=== PATIENT | male | born 1960 | race Caucasian/White ===

== ENCOUNTER 2018-05-29 10:40 | Outpatient (CLI) | payer MEDICARE | END 2018-05-29 10:41 | disposition home or self-care (01) | LOC: BICCT 10:40 | PROVIDERS: ATTEND Physician Assistant Surgical | DX: M47.26 Other spondylosis with radiculopathy, lumbar region (principal); M54.2 Cervicalgia; M54.6 Pain in thoracic spine; M25.78 Osteophyte, vertebrae; M46.92 Unspecified inflammatory spondylopathy, cervical region; Z98.890 Other specified postprocedural states; Z98.1 Arthrodesis status | CPT/HCPCS: 72040; 72100; 72125 ==

== ENCOUNTER 2018-07-03 12:58 | Outpatient (CLI) | payer MEDICARE ==
--- NOTE | 2018-07-03 16:18 | MRI ---
MRI THORACIC SPINE NONCONTRAST: DATE: 07/03/18. HISTORY: A 58-year-old male with M54.6, thoracic back pain. COMPARISON: None. FINDINGS: Vertebral body heights are maintained. Bone marrow signal is normal. There is no high-grade central spinal canal, high-neural foraminal narrowing, cord impingement, or cathie nerve root impingement, at any level. There are tiny disk protrusions or disk-osteophyte complexes encroaching upon the anteri or aspect of the spinal canal at most levels throughout the mid and lower thoracic spine. The one at T5-6 at midline approaches the ventral surface of the spinal cord, but does not indent it. IMPRESSION: 1. Multilevel mild degenerative disk changes. 2. No high-grade central spinal canal stenosis or high-grade neural foraminal stenosis at any level. POS: MIKE
--- NOTE | 2018-07-03 16:50 | MRI ---
MRI CERVICAL SPINE WITH AND WITHOUT CONTRAST: DATE: 07/03/18. HISTORY: A 58-year-old female with cervicalgia. COMPARISON: None. FINDINGS: Vertebral body heights are maintained. Alignment is normal. There are anterior metallic plate and s crews at C6 and C7. There is successful ankylosis between the C6 and C7 vertebral bodies, across an obliterated disk space. The disk spaces are maintained throughout the rest of the levels. There are moderate degenerative facet changes on the right at all levels, except for C6-7, and on the left at all levels, except C5-6 and C6-7. The cervical spinal cord is normal in size and signal. There is n o abnormal enhancement or mass involving the intramedullary, extramedullary-intradural, extradural, i ntraosseous (except the C6 and C7 levels which contain metal), or perivertebral spaces. The findings regarding spinal canal and neural foraminal caliber are as follows: C1-2: No high-grade central stenosis. C2-3: No high-grade central stenosis. Tiny central and right paracentral disk protrusion or disk-os teophyte complex. No right neural foraminal stenosis. Mild left neural foraminal stenosis. C3-4: Tiny central disk-osteophyte complex. No high-grade central stenosis. Bilateral uncinate pro cess osteophytes encroach upon the bilateral neural foramina, causing moderate bilateral neural hayes inal stenosis. C4-5: Tiny central disk protrusion. No high-grade central stenosis. Right uncinate process osteoph ytes cause moderate right neural foraminal stenosis. No left neural foraminal stenosis. C5-6: No significant central stenosis. Small bilateral uncinate process osteophytes. Mild to moder ate bilateral neural foraminal stenosis. C6-7: No central stenosis. Mild to moderate right neural foraminal stenosis. No left neural forami nal stenosis. C7-T1: No high-grade central stenosis. Mild to moderate right neural foraminal stenosis. Moderate neural foraminal stenosis. IMPRESSION: 1. Status post ACDF (anterior cervical diskectomy and fusion) at C6-7. 2. No high-grade central spinal canal stenosis at any level. 3. Modest neural foraminal stenosis at several levels. POS: MIKE
--- NOTE | 2018-07-04 09:31 | MRI ---
MRI OF THE LUMBAR SPINE WITH AND WITHOUT IV CONTRAST: INDICATION: Lumbar radiculopathy. CONTRAST: 20 cc of MultiHance. COMPARISON: None. FINDINGS: There is postprocedural change laminectomies at L5. There is epidural lipomatosis involving the lumbar spine most pronounced from L2 through L5. Mild epidural fibrotic enhancement is seen along the posterior aspect of the thecal sac at the dion ctomy sites at L4-5. No definite abnormal enhancement is demonstrated. At L5-S1, there is moderate facet joint degenerative change and a broad-based disk bulge. There is l oss of disk space height. A combination of these degenerative changes induces moderate bilateral siri ral foraminal narrowing. At the L4-5 level, there is a broad-based bulge, asymmetric to the right. There is a small superimpo sed central disk protrusion. There is moderate facet joint degenerative change. Constellation of fi ndings induces mild to moderate bilateral neural foraminal narrowing and moderate right lateral reces s narrowing. At L3-4, there is a broad-based bulge with a superimposed central disk protrusion. The epidural lipo matosis in addition to the broad-based disk bulge with mild to moderate facet joint hypertrophy induc es moderate to severe central canal narrowing. There is mild bilateral neural foraminal narrowing. At L2-3, there is a broad-based bulge with a superimposed central protrusion. There is moderate face t joint degenerative change. There is epidural lipomatosis. Constellation of findings induces moder ate central canal narrowing. There is mild bilateral neural foraminal narrowing. At L1-L2, there is a mild broad-based bulge without appreciable central canal or neural foraminal jeni rowing. At T12-L1, there is a mild broad-based bulge without appreciable central canal or neural foraminal na rrowing. IMPRESSION: 1. Central canal and neural foraminal narrowing seen at L2-3 and L3-4. 2. Broad-based bulge with facet hypertrophy at L4-5 induces mild to moderate bilateral neural forami nal narrowing. There is moderate right lateral recess narrowing due to the broad-based bulge and fac et hypertrophy. 3. Moderate bilateral neural foraminal narrowing at L5-S1 due to facet hypertrophy, broad-based disk -osteophyte complex, and loss of disk space height. POS: MIKE
== END 2018-07-03 12:59 | disposition home or self-care (01) ==
LOC: TBSIIMAG 12:58
PROVIDERS: ATTEND Physician Assistant Surgical
DX: M54.2 Cervicalgia (principal); M54.16 Radiculopathy, lumbar region; M54.6 Pain in thoracic spine; M48.061 Spinal stenosis, lumbar region without neurogenic claudication; M99.83 Other biomechanical lesions of lumbar region; M48.8X6 Other specified spondylopathies, lumbar region; M48.02 Spinal stenosis, cervical region; M99.81 Other biomechanical lesions of cervical region; M51.34 Other intervertebral disc degeneration, thoracic region; Z98.1 Arthrodesis status
CPT/HCPCS: 72146; 72156; 72158

== ENCOUNTER 2018-07-07 19:48 | Emergency (ER) | payer MEDICARE ==
[2018-07-07 20:14] LABS: #Eosinphils 0.2 thou/uL (0.0-0.7); #Lymphocytes 1.5 thou/uL (1.20-3.40); #Monocytes 0.7 thou/uL (0.11-0.59); #Neutrophils 5.9 thou/uL (1.40-6.50); %Basophils 0.5 % (0.0-1.0); %Eosinophils 2.1 % (0.0-10.0); %Lymphocytes 18.3 % (21.0-51.0); %Monocytes 8.2 % (0.0-10.0); %Neutrophils 70.9 % (42.0-75.0); Hemoglobin 14.1 g/dL (14.0-18.0); Mean Corpuscular HGB CONC 35.5 g/dL (32.0-36.0); Mean Corpuscular Hemoglobin 31.9 pg (27.0-31.0); Mean Corpuscular Volume 89.9 fL (78.0-98.0); Mean Platelet Volume 8.2 fL (7.4-10.4); Platelet Count 206 thou/uL (130-400); RBC Distribution Width 12.6 % (11.5-14.5); Red Blood Cell (RBC) Count 4.42 mill/uL (4.70-6.10); White Blood Cell (WBC) Count 8.3 thou/uL (4.8-10.8)
[2018-07-07 20:38] LABS: CKMB 0.8 ng/mL (0-6.6); Troponin I Less than 0.010 ng/mL (< 0.028)
[2018-07-07 20:38] LABS: ALT (SGPT) 21 U/L (8-55); AST (SGOT) 14 U/L (5-34); Albumin 4.4 g/dL (3.5-5.0); Alkaline Phosphatase 65 U/L (40-150); Anion Gap 9 mmol/L (10-20); BUN (Urea Nitrogen) 16 mg/dL (8.4-25.7); Bilirubin, Total 0.6 mg/dL (0.2-1.2); Calc. Creatinine Clearance 0 mL/min (70-130); Calcium 9.4 mg/dL (7.8-10.44); Carbon Dioxide 31 mmol/L (22-29); Chloride 103 mmol/L (98-107); Estimated GFR-MDRD 48; Globulin 2.8 g/dL (2.4-3.5); Glucose 124 mg/dL (70-105); Lipase 59 U/L (8-78); Protein, Total 7.2 g/dL (6.0-8.3); Sodium 140 mmol/L (136-145)
[2018-07-07] MEDS ORDERED: Ondansetron HCl/PF 4 MG/2 ML Vial ONE (20:49)
--- NOTE | 2018-07-07 21:31 | RAD ---
AP CHEST: Indication: Vomiting, nausea. Comparison: 05-23-04 FINDINGS: There is an ACDF involving the lower sacral spine. The left shoulder has been replaced. Lungs are ha ar. Heart size accentuated by exam technique. No pleural effusion or pneumothorax is evident. IMPRESSION: No acute cardiopulmonary abnormality. POS: BH
[2018-07-07] MEDS ORDERED: Potassium Chloride 20 MEQ TAB ONE (22:51)
== END 2018-07-07 23:05 | disposition home or self-care (01) ==
LOC: ERS 19:48
DX: E87.6 Hypokalemia (principal); I10 Essential (primary) hypertension; F31.9 Bipolar disorder, unspecified; F43.10 Post-traumatic stress disorder, unspecified; Z79.899 Other long term (current) drug therapy
CPT/HCPCS: 71045; 80053; 82553; 83690; 84484; 85025; 93005; 96361; 96374; J2405

== ENCOUNTER 2018-07-15 21:09 | Emergency (ER) | payer MEDICARE | END 2018-07-15 23:15 | disposition home or self-care (01) | LOC: ERS 21:09 | DX: B34.9 Viral infection, unspecified (principal); I10 Essential (primary) hypertension; F31.9 Bipolar disorder, unspecified; F43.10 Post-traumatic stress disorder, unspecified | CPT/HCPCS: 94640; J7620 ==

== ENCOUNTER 2018-08-15 08:32 | Outpatient (CLI) | payer MEDICARE ==
[2018-08-15 09:19] LABS: Hemoglobin 14.5 g/dL (14.0-18.0); Mean Corpuscular HGB CONC 34.7 g/dL (32.0-36.0); Mean Corpuscular Hemoglobin 31.8 pg (27.0-31.0); Mean Corpuscular Volume 91.6 fL (78.0-98.0); Mean Platelet Volume 8.4 fL (7.4-10.4); Platelet Count 237 thou/uL (130-400); RBC Distribution Width 12.8 % (11.5-14.5); Red Blood Cell (RBC) Count 4.58 mill/uL (4.70-6.10); White Blood Cell (WBC) Count 6.1 thou/uL (4.8-10.8)
[2018-08-15 09:25] LABS: PTT 27.7 SEC (22.9-36.1)
[2018-08-15 09:49] LABS: Anion Gap 12 mmol/L (10-20); BUN (Urea Nitrogen) 17 mg/dL (8.4-25.7); Calc. Creatinine Clearance 0 mL/min (70-130); Carbon Dioxide 29 mmol/L (22-29); Chloride 101 mmol/L (98-107); Estimated GFR-MDRD 56; Glucose 128 mg/dL (70-105); Potassium 3.2 mmol/L (3.5-5.1); Sodium 139 mmol/L (136-145)
== END 2018-08-15 08:33 | disposition home or self-care (01) ==
LOC: LABBT 08:32
PROVIDERS: ATTEND Surgery
DX: Z01.818 Encounter for other preprocedural examination (principal); M54.16 Radiculopathy, lumbar region; M48.061 Spinal stenosis, lumbar region without neurogenic claudication
CPT/HCPCS: 80048; 85027; 85610; 85730; 93005; 93010

== ENCOUNTER 2018-08-15 09:15 | Inpatient (IN) | payer MEDICARE ==
[2018-08-15 09:07] VITALS: BMI 42.1
[2018-08-22] MEDS ORDERED: CEFAZOLIN/Water 2 GM/20 ML SYRINGE ONE (08:56)
[2018-08-22] MEDS ORDERED: Bacitracin Zinc Ointment 30 gm TUBE ONE (09:25)
[2018-08-22] MEDS ORDERED: Sodium Chloride 0.9% 10 ML ONE (09:25)
[2018-08-22] MEDS ORDERED: Thrombin 5000 UNITS/5 ML VIAL ONE (09:25)
[2018-08-22] MEDS ORDERED: Ondansetron PF 4 MG/2 ML Vial ONE (10:01)
[2018-08-22] MEDS ORDERED: PHENYLEPHRINE-NS 100 MCG/ML 10 ML SYRINGE ONE (10:01)
[2018-08-22] MEDS ORDERED: PROPOFOL 200 MG/20 ML VIAL ONE (10:01)
[2018-08-22] MEDS ORDERED: Lidocaine 1% PF 5 ML VIAL ONE (10:01)
[2018-08-22] MEDS ORDERED: Glycopyrrolate 0.2 MG/ML 5 ML SYRINGE ONE (10:01)
[2018-08-22] MEDS ORDERED: Succinylcholine Chloride 20 MG/ML 10 ml SYRINGE FS ONE (10:01)
[2018-08-22] MEDS ORDERED: ePHEDrine/0.9% NaCl/PF SYRINGE 50 mg/10 ml ONE (10:01)
[2018-08-22] MEDS ORDERED: Dexamethasone 20 MG/5 ML VIAL ONE (10:01)
[2018-08-22] MEDS ORDERED: Fentanyl 250 MCG/5 ML VIAL ONE (10:22)
[2018-08-22] MEDS ORDERED: Promethazine HCl 25 MG/ML VIAL SLOW IVP PRN (12:53)
[2018-08-22] MEDS ORDERED: Morphine Sulfate 2 MG/ML SYRINGE SLOW IVP PRN (12:53)
[2018-08-22] MEDS ORDERED: Ondansetron HCl/PF 4 MG/2 ML Vial IVP PRN (12:53)
[2018-08-22] MEDS ORDERED: Promethazine HCl 25 MG/ML VIAL IM PRN (12:53)
[2018-08-22] MEDS ORDERED: PACU-Morphine 4MG/ML VIAL SLOW IVP PRN (12:53)
[2018-08-22] MEDS ORDERED: HYDROmorphone 2 MG/ML VIAL SLOW IVP PRN (12:53)
--- NOTE | 2018-08-22 13:05 | OP ---
DATE OF PROCEDURE: 08/22/2018 SURGEON: Robles Hernandez M.D. HUMAN RESOURCES RECRUITER: Fernando Orellana PA-C. PREPROCEDURE DIAGNOSES: Multilevel lumbar stenosis with low back and leg pain. POSTPROCEDURE DIAGNOSES: Multilevel lumbar stenosis with low back and leg pain. PROCEDURES: 1. L2-L3, L3-L4 and L5-S1 laminectomies and partial facetectomies and foraminotomies over the L2, L3 , L4 and S1 nerve roots. 2. Bilateral revision L4-L5 hemilaminotomy, foraminotomy for decompression of the L4-L5 nerve roots. PROCEDURE IN DETAIL: After informed consent was obtained from the patient, the patient was brought t o OR 11. Proper patient pause and identification was carried out. He was placed under excellent gen eral endotracheal anesthesia and positioned prone on the OR table. All appropriate points were padde d. We identified the L2, L3, L4 and S1 dorsal spines as a portion of the L4-L5 had been removed. Th is area was sterilely cleansed, prepared and draped. Proper patient pause and identification was car ried out. The wound was then opened with a combination of sharp, monopolar and blunt dissection. L2 , L3, L4, the revision region of L4-L5 and L5-S1 were exposed and localization film confirmed our are a of interest. We then performed L2-L3, L3-L4 laminectomies, partial facetectomies and foraminotomie s and L5-S1 laminectomies, partial facetectomies and foraminotomies. We also performed bilateral rev ision L4-L5 hemilaminotomies and foraminotomies for excellent decompression of the L2, L3, L4 and L5 nerve roots along with the S1 nerve roots bilaterally and the common dural tube. There was no spinal fluid leak. Hemostasis was maximized throughout. There was as expected scar tissue in the L4-L5 re gion. Copious irrigation occurred throughout and we maximized hemostasis. I do not think it is nece ssary to do any diskectomy at L3-L4 as we had excellent decompression of the traversing right L4 nerv e roots simply from our decompression. The wound was copiously irrigated and closed in anatomic laye rs following sprinkling of vancomycin powder. The patient then emerged from anesthesia.
[2018-08-22] MEDS ORDERED: Acetaminophen 325 MG TAB PO PRN (13:52)
[2018-08-22] MEDS ORDERED: Fleet Enema 133 ML BOT PR PRN (13:52)
[2018-08-22] MEDS ORDERED: Milk Of Magnesia 30 ML UDCUP PO PRN (13:52)
[2018-08-22] MEDS ORDERED: Mag-Al 1200 mg/1200 mg/30 ML UDCUP PO PRN (13:52)
[2018-08-22] MEDS ORDERED: Bisacodyl 10 MG SUPP PR PRN (13:52)
[2018-08-22] MEDS ORDERED: Fentanyl 100 MCG/2 ML VIAL ONE ×2 (14:00→15:15)
[2018-08-22] MEDS ORDERED: HYDROmorphone 2 MG/ML VIAL ONE (14:00)
[2018-08-22] MEDS: Ondansetron PF 4 MG/2 ML Vial IVP PRN (15:52)
[2018-08-22] MEDS: Sodium Chloride 0.9% 1,000 ML IV SCH (16:00)
[2018-08-22] MEDS: HYDROcodone/Acetaminophen 7.5/325 mg Tablet PO PRN ×2 (16:28→21:09)
[2018-08-22] MEDS: tiZANidine HCl 4 MG TAB PO PRN ×2 (16:28→22:42)
[2018-08-22] MEDS: CEFAZOLIN/Water 2 GM/20 ML SYRINGE SLOW IVP SCH (18:53)
[2018-08-22] MEDS: Atorvastatin Calcium 10 MG TAB PO SCH (20:24)
[2018-08-22] MEDS: Pregabalin 75 MG CAP PO SCH (20:24)
[2018-08-22] MEDS ORDERED: PREGABALIN PO SCH (21:00)
[2018-08-23] MEDS: CEFAZOLIN/Water 2 GM/20 ML SYRINGE SLOW IVP SCH (03:17)
[2018-08-23] MEDS: Sodium Chloride 0.9% 1,000 ML IV SCH ×2 (04:08→16:11)
[2018-08-23] MEDS: HYDROcodone/Acetaminophen 7.5/325 mg Tablet PO PRN ×5 (04:26→21:13)
[2018-08-23] MEDS: tiZANidine HCl 4 MG TAB PO PRN ×3 (04:27→16:38)
[2018-08-23] MEDS: Acetaminophen/Codeine 30-300mg Tablet PO PRN ×4 (07:58→20:09)
[2018-08-23] MEDS: Pregabalin 75 MG CAP PO SCH ×2 (08:26→20:04)
[2018-08-23] MEDS: FLUoxetine HCl 20 MG CAP PO SCH (08:28)
[2018-08-23] MEDS: Losartan/Hydrochlorothiazide 100 mg/25 mg Tablet PO SCH (08:28)
[2018-08-23] MEDS ORDERED: Brexpiprazole [Rexulti] 3 MG PO SCH (09:00)
--- NOTE | 2018-08-23 09:31 | PRG ---
DATE OF SERVICE: 08/23/2018 SUBJECTIVE: Mr. Arango is postoperative day #1 from lumbar laminectomy. He is doing well with imp rovement in his leg pain. He does have a low back pain related to muscle spasms and perioperative pa in not surprisingly. We will work on this today and if brought under better control, we will plan on dismissal later today. Overall, I am pleased with how he is doing. Neurologically, he is intact.
[2018-08-23] MEDS: Ondansetron PF 4 MG/2 ML Vial IVP PRN (12:48)
[2018-08-23] MEDS: Atorvastatin Calcium 10 MG TAB PO SCH (20:04)
[2018-08-24] MEDS: HYDROcodone/Acetaminophen 7.5/325 mg Tablet PO PRN ×5 (02:11→22:54)
[2018-08-24] MEDS: Sodium Chloride 0.9% 1,000 ML IV SCH ×2 (05:04→18:15)
[2018-08-24] MEDS: tiZANidine HCl 4 MG TAB PO PRN ×2 (08:43→16:08)
[2018-08-24] MEDS: Pregabalin 75 MG CAP PO SCH ×2 (08:44→21:18)
[2018-08-24] MEDS: Losartan/Hydrochlorothiazide 100 mg/25 mg Tablet PO SCH (08:45)
[2018-08-24] MEDS: FLUoxetine HCl 20 MG CAP PO SCH (08:45)
--- NOTE | 2018-08-24 09:45 | PRG ---
DATE OF SERVICE: 08/24/2018 SUBJECTIVE: Mr. Armando Arango on rounds this morning. He is 2 days out from a laminectomy and dis kectomy by Dr. Hernandez. The radiating leg pain down to his legs is gone. He is very happy with that result. He has had some muscle spasm and difficulty with pain control at the surgical site, but his nerve pain is markedly improved. Mr. Arango walked yesterday. He said to be ready to go home today as long as his pain gets under c ontrol. We talked at length about frequent walking and muscle spasm. He understands the recommendat ion. We will make sure his pain is under control by lunch time before dismissal. If we cannot get i t under control, he may have to stay, but the plan is for discharge.
[2018-08-24] MEDS ORDERED: HYDROcodone/Acetaminophen 7.5/325 mg Tablet PO PRN (10:27)
[2018-08-24] MEDS: Atorvastatin Calcium 10 MG TAB PO SCH (21:19)
[2018-08-25] MEDS: HYDROcodone/Acetaminophen 7.5/325 mg Tablet PO PRN ×2 (06:39→10:48)
[2018-08-25] MEDS: tiZANidine HCl 4 MG TAB PO PRN (06:42)
[2018-08-25] MEDS: Losartan/Hydrochlorothiazide 100 mg/25 mg Tablet PO SCH (08:42)
[2018-08-25] MEDS: FLUoxetine HCl 20 MG CAP PO SCH (08:42)
[2018-08-25] MEDS: Pregabalin 75 MG CAP PO SCH (08:42)
[2018-08-25] MEDS: Sodium Chloride 0.9% 1,000 ML IV SCH (08:44)
--- NOTE | 2018-08-25 08:51 | PRG ---
DATE OF SERVICE: 08/25/2018 SUBJECTIVE: I saw Mr. Arango in his hospital room this morning. He is unable to leave the hospita l yesterday. He reports some paraspinal pain at the site of the operation. He still tells us that t he pain he had before surgery is gone. His vital signs overnight are relatively stable, although his oxygen saturation hangs in the mid to low 90s. Lower extremity exam does not show any new deficits. Mr. Arango is ambulating with aggressive treatment with Voldyne and incentive spirometer. We will try these medications that are not depressive to his respiratory drive and if his saturations remaine d stable and he is safe for activities of daily living, he can be discharged.
[2018-08-25 09:02] VITALS: BP 122/80; TEMP 97.8
== END 2018-08-25 12:57 | disposition home or self-care (01) | DRG 520 ==
LOC: SURG A 08-22 08:03
PROVIDERS: ADMIT Surgery; ATTEND Surgery
PROC: 01NB0ZZ Release Lumbar Nerve, Open Approach (ICD-10-PCS; principal; 2018-08-22)
PROC: 0SB20ZZ Excision of Lumbar Vertebral Disc, Open Approach (ICD-10-PCS; 2018-08-22)
PROC: 01NB0ZZ Release Lumbar Nerve, Open Approach (ICD-10-PCS; 2018-08-22)
DX: M54.16 Radiculopathy, lumbar region (principal); M48.061 Spinal stenosis, lumbar region without neurogenic claudication; M51.26 Other intervertebral disc displacement, lumbar region
CPT/HCPCS: 76001; G8978-GP-CJ; G8979-GP-CJ; G8980-GP-CJ; J0131; J1100; J1170; J2001; J2270; J2405; J2704; J3010; J3370; J3490

== ENCOUNTER 2018-09-10 20:58 | Emergency (ER) | payer MEDICARE ==
[2018-09-10 22:16] LABS: #Eosinphils 0.2 thou/uL (0.0-0.7); #Lymphocytes 1.7 thou/uL (1.20-3.40); #Monocytes 0.6 thou/uL (0.11-0.59); #Neutrophils 4.2 thou/uL (1.40-6.50); %Basophils 0.4 % (0.0-1.0); %Eosinophils 3.5 % (0.0-10.0); %Lymphocytes 25.8 % (21.0-51.0); %Monocytes 8.4 % (0.0-10.0); Hemoglobin 13.4 g/dL (14.0-18.0); Mean Corpuscular HGB CONC 34.7 g/dL (32.0-36.0); Mean Corpuscular Hemoglobin 31.7 pg (27.0-31.0); Mean Corpuscular Volume 91.4 fL (78.0-98.0); Mean Platelet Volume 9.1 fL (7.4-10.4); Platelet Count 262 thou/uL (130-400); RBC Distribution Width 12.3 % (11.5-14.5); Red Blood Cell (RBC) Count 4.24 mill/uL (4.70-6.10); White Blood Cell (WBC) Count 6.7 thou/uL (4.8-10.8)
[2018-09-10 22:38] LABS: ALT (SGPT) 17 U/L (8-55); AST (SGOT) 15 U/L (5-34); Albumin 4.2 g/dL (3.5-5.0); Alkaline Phosphatase 64 U/L (40-150); Anion Gap 12 mmol/L (10-20); BUN (Urea Nitrogen) 20 mg/dL (8.4-25.7); Bilirubin, Total 0.6 mg/dL (0.2-1.2); Calc. Creatinine Clearance 0 mL/min (70-130); Calcium 9.4 mg/dL (7.8-10.44); Carbon Dioxide 28 mmol/L (22-29); Chloride 103 mmol/L (98-107); Estimated GFR-MDRD 51; Globulin 2.7 g/dL (2.4-3.5); Glucose 109 mg/dL (70-105); Potassium 3.4 mmol/L (3.5-5.1); Protein, Total 6.9 g/dL (6.0-8.3); Sodium 140 mmol/L (136-145)
[2018-09-10 22:42] LABS: Troponin I Less than 0.010 ng/mL (< 0.028)
[2018-09-10] MEDS ORDERED: Lorazepam 1 MG TAB ONE (22:51)
--- NOTE | 2018-09-10 23:16 | RAD ---
CHEST ONE VIEW: 09/10/18 INDICATION: History of anxiety, bipolar disease, dyspnea. FINDINGS: ACDF and left shoulder replacement is stable. Heart size is accentuated by the exam technique. Lungs are clear. No pneumothorax is evident. No acute osseous abnormality is evident. IMPRESSION: No acute cardiopulmonary abnormality. POS: TAWANNAH
== END 2018-09-10 23:33 | disposition home or self-care (01) ==
LOC: ERS 20:58
DX: F43.0 Acute stress reaction (principal); I10 Essential (primary) hypertension; F31.9 Bipolar disorder, unspecified; F41.9 Anxiety disorder, unspecified; F43.10 Post-traumatic stress disorder, unspecified
CPT/HCPCS: 36415; 71045; 80053; 84484; 85025; 85379; 93005

== ENCOUNTER 2019-02-22 17:40 | Emergency (ER) | payer MEDICARE, SELFPAY ==
[~2019-02-22 17:40] MED LIST: ISOVUE-370 76%-LOCM 1 ML ONE
[2019-02-22] MEDS ORDERED: Ondansetron PF 4 MG/2 ML Vial ONE (18:05)
[2019-02-22] MEDS ORDERED: Morphine 4 MG/ML VIAL ONE (18:05)
[2019-02-22 18:18] LABS: #Eosinphils 0.1 thou/uL (0.0-0.7); #Lymphocytes 1.7 thou/uL (1.20-3.40); #Monocytes 0.7 thou/uL (0.11-0.59); #Neutrophils 7.7 thou/uL (1.40-6.50); %Basophils 0.2 % (0.0-1.0); %Eosinophils 0.7 % (0.0-10.0); %Lymphocytes 16.5 % (21.0-51.0); %Monocytes 6.9 % (0.0-10.0); %Neutrophils 75.7 % (42.0-75.0); Hemoglobin 14.4 g/dL (14.0-18.0); Mean Corpuscular HGB CONC 34.4 g/dL (32.0-36.0); Mean Corpuscular Hemoglobin 31.8 pg (27.0-31.0); Mean Corpuscular Volume 92.4 fL (78.0-98.0); Mean Platelet Volume 8.6 fL (7.4-10.4); Platelet Count 274 thou/uL (130-400); RBC Distribution Width 13.2 % (11.5-14.5); Red Blood Cell (RBC) Count 4.53 mill/uL (4.70-6.10); White Blood Cell (WBC) Count 10.1 thou/uL (4.8-10.8)
[2019-02-22 18:40] LABS: ALT (SGPT) 9 U/L (8-55); AST (SGOT) 15 U/L (5-34); Albumin 4.1 g/dL (3.5-5.0); Alkaline Phosphatase 63 U/L (40-150); Anion Gap 13 mmol/L (10-20); BUN (Urea Nitrogen) 8 mg/dL (8.4-25.7); Bilirubin, Total 0.5 mg/dL (0.2-1.2); Calc. Creatinine Clearance 0 mL/min (70-130); Calcium 9.3 mg/dL (7.8-10.44); Carbon Dioxide 25 mmol/L (22-29); Chloride 104 mmol/L (98-107); Estimated GFR-MDRD 72; Globulin 3.1 g/dL (2.4-3.5); Glucose 129 mg/dL (70-105); Lipase 40 U/L (8-78); Potassium 4.4 mmol/L (3.5-5.1); Protein, Total 7.2 g/dL (6.0-8.3); Sodium 138 mmol/L (136-145)
--- NOTE | 2019-02-22 19:33 | CT ---
CT ABDOMEN AND PELVIS WITH IV CONTRAST 02/22/19 HISTORY: Right upper quadrant abdominal pain with radiation of pain to the back. Vomiting and diarrhea. COMPARISON: None available. FINDINGS: Calcified granuloma is seen at the left lung base. The lung bases are otherwise clear. A 2 cm hypodense exophytic lesion is seen at the posterior aspect inferior pole left kidney which burgess s not demonstrate an attenuation coefficient consistent with a simple cyst. Precontrast images are n ot obtained for further evaluation. Post cholecystectomy changes are noted. The liver, spleen, pancreas, bilateral adrenal glands, right kidney, abdominal aorta, and urinary david dder demonstrate a normal CT appearance. A few scattered colonic diverticula are seen in the descending colon. The appendix is not visualized and there is linear area of increased density at the cecal apex likely related to prior appendectomy. No dilated loops of small bowel are seen. There is a fat containing left inguinal hernia present. Vascular calcifications are seen in the iliac arteries. Degenerative changes are seen in the spine with laminectomy defects seen involving the lower lumbar spine. IMPRESSION: 1. Low density lesion inferior pole left kidney which does not demonstrate an attenuation coeffi cient compatible with a simple cyst. Follow-up CT scan abdomen with and without IV contrast is recomm ended for further evaluation. 2. Post cholecystectomy changes. 3. Small fat containing umbilical hernia as well as fat containing left inguinal hernia. 4. Evidence of prior appendectomy. 5. No acute findings are seen in the abdomen or pelvis. POS: TINY
[2019-02-22] MEDS ORDERED: Mag-Al 1200 mg/1200 mg/30 ML UDCUP ONE (19:58)
[2019-02-22] MEDS ORDERED: Lidocaine Viscous Sol 2% 15 ml UD Cup ONE (19:58)
[2019-02-22 20:03] LABS: Bilirubin Negative (Negative); Blood, Urine Negative (Negative); Clarity CLEAR (Clear); Glucose, Urine (Dipstick) Negative (Negative); Leukocyte Negative (Negative); Nitrite Negative (Negative); Protein, Urine (Dipstick) Negative (Neg-Trace); Specific Gravity, Urine 1.024 (1.002-1.036); pH, Urine 7.5 (5.0-9.0)
== END 2019-02-22 20:45 | disposition home or self-care (01) ==
LOC: ERS 17:40
DX: R10.11 Right upper quadrant pain (principal); E78.5 Hyperlipidemia, unspecified; I10 Essential (primary) hypertension; F41.9 Anxiety disorder, unspecified; F31.9 Bipolar disorder, unspecified; F43.10 Post-traumatic stress disorder, unspecified
CPT/HCPCS: 36415; 74177; 80053; 81003; 83690; 85025; 93005; 96361; 96374; 96375; J2270; J2405; Q9966

== ENCOUNTER 2019-05-31 00:30 | Observation (INO) | payer MEDICARE ==
[2019-05-31 01:15] LABS: #Lymphocytes 1.7 thou/uL (1.20-3.40); #Monocytes 0.5 thou/uL (0.11-0.59); #Neutrophils 3.8 thou/uL (1.40-6.50); %Basophils 0.7 % (0.0-1.0); %Eosinophils 0.2 % (0.0-10.0); %Lymphocytes 28.8 % (21.0-51.0); %Monocytes 7.7 % (0.0-10.0); %Neutrophils 62.6 % (42.0-75.0); Hemoglobin 13.5 g/dL (14.0-18.0); Mean Corpuscular Hemoglobin 32.7 pg (27.0-31.0); Mean Corpuscular Volume 90.9 fL (78.0-98.0); Mean Platelet Volume 8.3 fL (7.4-10.4); Platelet Count 229 thou/uL (130-400); RBC Distribution Width 12.2 % (11.5-14.5); Red Blood Cell (RBC) Count 4.13 mill/uL (4.70-6.10)
[2019-05-31] MEDS ORDERED: Fentanyl 100 MCG/2 ML VIAL ONE (01:15)
[2019-05-31] MEDS ORDERED: Ondansetron PF 4 MG/2 ML Vial ONE (01:15)
[2019-05-31 01:34] LABS: ALT (SGPT) 17 U/L (8-55); AST (SGOT) 16 U/L (5-34); Albumin 4.1 g/dL (3.5-5.0); Alkaline Phosphatase 86 U/L (40-150); Anion Gap 14 mmol/L (10-20); BUN (Urea Nitrogen) 9 mg/dL (8.4-25.7); Bilirubin, Total 0.2 mg/dL (0.2-1.2); Calc. Creatinine Clearance 0 mL/min (70-130); Carbon Dioxide 25 mmol/L (22-29); Chloride 103 mmol/L (98-107); Estimated GFR-MDRD 72; Globulin 3.2 g/dL (2.4-3.5); Glucose 177 mg/dL (70-105); Lipase 117 U/L (8-78); Potassium 3.6 mmol/L (3.5-5.1); Protein, Total 7.3 g/dL (6.0-8.3); Sodium 138 mmol/L (136-145)
[2019-05-31] MEDS ORDERED: Morphine 4 MG/ML VIAL ONE (01:37)
[2019-05-31 02:23] LABS: Bilirubin Negative (Negative); Blood, Urine Negative (Negative); Clarity Clear (Clear); Glucose, Urine (Dipstick) Normal (Negative); Leukocyte Negative Leu/uL (Negative); Nitrite Negative (Negative); Protein, Urine (Dipstick) Negative (Neg-Trace); Urobilinogen Normal mg/dL (Less than 2)
[2019-05-31] MEDS ORDERED: HYDROmorphone 0.5 MG/0.5 ML SYRINGE ONE (02:36)
[2019-05-31] MEDS ORDERED: Pantoprazole 40 MG VIAL ONE (03:18)
[2019-05-31] MEDS ORDERED: Ondansetron ODT 4 MG TAB SL PRN (04:38)
[2019-05-31] MEDS ORDERED: Ondansetron PF 4 MG/2 ML Vial IVP PRN (04:38)
[2019-05-31] MEDS ORDERED: Sodium Chloride 0.9% (PF) 10 ML VIAL FS PRN (04:38)
[2019-05-31 05:32] LABS: Lactic Acid 1.3 mmol/L (0.5-2.2)
[2019-05-31] MEDS: Sodium Chloride 0.9% 1,000 ML IV SCH ×2 (05:54→14:04)
[2019-05-31] MEDS ORDERED: Morphine 4 MG/ML VIAL SLOW IVP SCH (06:00)
[2019-05-31] MEDS ORDERED: Morphine 2 MG/ML SYRINGE SLOW IVP PRN (08:58)
[2019-05-31] MEDS ORDERED: Pantoprazole 40 MG VIAL IVP SCH (09:00)
[2019-05-31] MEDS ORDERED: Famotidine 20 MG TAB PO SCH (09:00)
--- NOTE | 2019-05-31 09:16 | CT ---
PRELIMINARY REPORT/[facility]/EMERGENCY AFTER HOURS PROCEDURE: EXAM: CT Abdomen and Pelvis With Contrast EXAM DATE/TIME: 05/31/2019 1:26 AM CLINICAL HISTORY: 59 years old, male; Abdominal pain; Generalized; Prior surgery; Surgery date: 6+ months; Patient HX: 59 y/o m, with h/o pancreatitis, presents to ED C/O abd pain since 0800 yesterday morning. He describ es he was nauseated on waking yesterday morning, with onset of pain soon after. PT has x 3 prior admissions for pancreatitis. He describes ETOH ingestion in large amounts several years ago. Ab d surgical HX includes cholecystectomy TECHNIQUE: Imaging protocol: Axial computed tomography images of the abdomen and pelvis with intravenous contras t. Coronal and sagittal reformatted images were created and reviewed. COMPARISON: No relevant prior studies available. FINDINGS: Lungs: No consolidations in the lung bases. Liver: No liver masses. Gallbladder and bile ducts: Surgical changes of cholecystectomy. No ductal dilation. Pancreas: No pancreatic mass or ductal dilation. Spleen: No splenic masses. Adrenals: No adrenal nodules. Kidneys and ureters: Lesion measuring approximately 1.5 cm arising from the posterior-lateral aspect of the left kidney inferior pole. Symmetric renal perfusion. No hydronephrosis. Stomach and bowel: No evidence of obstruction or bowel wall thickening. Appendix: Surgical changes of prior appendectomy. Intraperitoneal space: No free air or free fluid. Vasculature: No abdominal aortic aneurysm. Lymph nodes: No lymphadenopathy. Bladder: Normal bladder. Reproductive: Normal appearance of the prostate and seminal vesicles. Bones/joints: No suspicious bone lesions. Soft tissues: Small to moderate fat containing left inguinal hernia. Tiny fat-containing umbilical hernia. IMPRESSION: 1. No acute findings in the abdomen or pelvis. 2. Lesion in the left kidney is indeterminate for being a hyperdense cyst or solid mass. Defer to ons ite Radiologist for follow-up recommendations. Thank you for allowing us to participate in the care of your patient. Dictated and Authenticated by: Ayla Contreras MD 05/31/2019 1:54 AM Central Time ([place] & [place]) FINAL REPORT EMERGENCY AFTER HOURS CT ABDOMEN AND PELVIS: Date: 05/31/19 FINDINGS/IMPRESSION: I agree with the preliminary report provided by [facility]. 1. Exophytic lesion involving the left kidney has been seen on a prior dated 03/02/19. This is rough ly stable in size. Recommendations remain the same as per the February 2019 examination. Additional imag ing utilizing renal mass protocol recommended. 2. Mild bibasilar atelectasis. 3. Fatty liver. 4. Cholecystectomy changes. 5. Mild amount of retained stool within the colon. POS: BH
[2019-05-31] MEDS: Morphine 4 MG/ML VIAL SLOW IVP PRN ×4 (09:30→22:11)
[2019-05-31] MEDS: Enoxaparin Sodium 40 MG/0.4 ML SYRINGE SC SCH (09:31)
[2019-05-31] MEDS: Sodium Chloride 0.45% 1,000 ML IV SCH ×2 (10:57→22:16)
[2019-05-31] MEDS: Venlafaxine HCl 25 MG TAB PO SCH (10:58)
[2019-05-31] MEDS: Losartan/Hydrochlorothiazide 100 mg/25 mg Tablet PO SCH (10:58)
[2019-05-31] MEDS ORDERED: ISOVUE-370 76%-LOCM 1 ML ONE (11:53)
--- NOTE | 2019-05-31 13:00 | HP ---
CHIEF COMPLAINT: Abdominal pain and nausea. HISTORY OF PRESENT ILLNESS: This patient is a 59-year-old male, who presented via the emergency department. This patient has a history of pancreatitis. Reports he has had 6 prior admissions for this. He reports that originally this was thought to be related to his gallbladder and he had a cholecystectomy. He also has a history of drinking heavily, but quit when he was 36, well before his pancreatitis diagnosed. The patient reports that on the morning of 05/30, he awakened with significant nausea and epigastric abdominal pain that persisted throughout the day and in the evening, it was too severe for him to be able to sleep. Therefore, he presented to the emergency department. He states that these symptoms are consistent with his prior episodes of pancreatitis, although at this time it feels like it is radiating to the back more than he recalls it during the previous episodes, but otherwise very similar in character. He has had minimal vomiting. He has had relatively normal bowel and bladder habits. The pain is worse with attempts at trying to eat. REVIEW OF SYSTEMS: The patient reports some arthritis-related arthralgias. Otherwise, all other systems reviewed and all pertinent positives and negatives noted in history of present illness. PAST MEDICAL HISTORY: Notable for recurrent pancreatitis, presumably due to gallbladder disease. He has hypertension, hyperlipidemia, PTSD, and bipolar disorder. SURGICAL HISTORY: Herniorrhaphy, C-spine fusion, back surgery, left shoulder replacement, left knee scope, appendectomy, cholecystectomy. SOCIAL HISTORY: The patient is not a current drinker, drug user, or smoker. He again does admit to having heavy alcohol use from about 19 to 36. He is . He is full code. His is his surrogate decision maker. 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 Ultimately, he broke his back and had to retire for medical reasons and is on disability. ALLERGIES: DIAZEPAM, NSAIDS, TRAMADOL. CURRENT MEDICATIONS: 1. Losartan and HCTZ 100/25 one p.o. daily. 2. Protonix 40 mg daily. 3. Fluoxetine one p.o. daily. 4. Venlafaxine XR 25 mg daily. These are medications documented from the ER and the admission nurse. However, the patient is not able to recall the names and dosages of his medications and his is currently bringing his medications here, so that we can confirm those. Reviewing his extended medication history, it appears that he has had Tylenol No. 3 prescribed in late February and again in mid March and again in April with 20 tablets on April 24 and 25 tablets on April 29, and another 15 on May 06 and 45 prescribed on May 27, actually it appears to be a mix of [place] 7.5 and Tylenol No. 3. PHYSICAL EXAMINATION: VITAL SIGNS: Temperature is 98.0, pulse 76, respirations 20, O2 saturation 95%, and BP 127/79. GENERAL APPEARANCE: Obese, age-appropriate male, in no distress. He is awake and alert, pleasant, and cooperative. HEENT: ED. He has no OP lesions, but he has obscured pharyngeal airway. NECK: Thick, supple, and symmetric. HEART: Regular rate and rhythm without murmurs, gallops, or rubs. LUNGS: Clear to auscultation bilaterally. Good chest wall expansion and air exchange. ABDOMEN: Soft, nondistended. Bowel sounds are present diffusely. He has tenderness across the epigastrium. No masses. He does have some voluntary guarding. EXTREMITIES: Have 1+ pretibial pitting edema. No cyanosis or clubbing. PSYCHIATRIC: Appears to have normal affect and behavior. NEUROLOGIC: He is moving all extremities spontaneously. Cranial nerves and cognition appeared to be normal and intact. LABORATORY DATA: White count 6.0, hemoglobin 13.5, platelets 229. Sodium 138, potassium 3.6, chloride 103, CO2 is 25, BUN 9, creatinine is 1.06, glucose 177. Lactic acid initially was 2.7, subsequent 1.3. Calcium is 9.0. LFTs normal. Lipase is 117. Urinalysis is negative. CT of the abdomen and pelvis, results are pending. Per the ER report of the interpretation, there are no acute findings. There is lesion in the left kidney, indeterminate for cyst or solid mass. EKG shows sinus rhythm at 85. ER COURSE: The patient received IV Protonix,. Received Dilaudid, morphine, and fentanyl. He also received Zofran and 2 L of fluids. IMPRESSION AND PLAN: 1. Abdominal pain, presumed to be pancreatitis. The patient does not have significant finding on his CT scan and his lipase is not significantly elevated. The patient will be admitted to the hospital under observation status for now, giving the lack of objective findings, he will be n.p.o., given IV fluids and IV pain medications. I have some concerns, given the patient's allergy to tramadol and his intolerance to NSAIDs, in fact that he has received a number of p.o. prescriptions for pain medications in the outpatient setting, he also reports that the morphine is doing nothing for his pain and preferred the fentanyl that was given in the emergency department. I have explained that I will not be giving that to him for ongoing pain management. We will make some adjustments in his current morphine dose. We will repeat his lipase levels in the morning. 2. Hypertension. Resume his usual losartan and HCTZ. 3. History of post-traumatic stress disorder/bipolar disorder. We will continue with his psych medications once we can elucidate the actual medications and dosages when his arrives with his medications. Job ID: [id number]
[2019-05-31 16:46] VITALS: BMI 42.3
[2019-05-31] MEDS: Ondansetron PF 4 MG/2 ML Vial IVP PRN (19:14)
[2019-06-01] MEDS: Ondansetron PF 4 MG/2 ML Vial IVP PRN ×3 (02:19→17:22)
[2019-06-01] MEDS: Morphine 4 MG/ML VIAL SLOW IVP PRN ×2 (02:19→07:58)
[2019-06-01] MEDS: Venlafaxine HCl 25 MG TAB PO SCH (07:57)
[2019-06-01] MEDS: Losartan/Hydrochlorothiazide 100 mg/25 mg Tablet PO SCH (07:57)
[2019-06-01] MEDS: Enoxaparin Sodium 40 MG/0.4 ML SYRINGE SC SCH (07:59)
[2019-06-01 08:36] LABS: #Lymphocytes 1.3 thou/uL (1.20-3.40); #Monocytes 0.4 thou/uL (0.11-0.59); #Neutrophils 3.2 thou/uL (1.40-6.50); %Basophils 0.7 % (0.0-1.0); %Eosinophils 0.3 % (0.0-10.0); %Lymphocytes 25.9 % (21.0-51.0); %Monocytes 8.6 % (0.0-10.0); %Neutrophils 64.5 % (42.0-75.0); Hemoglobin 13.2 g/dL (14.0-18.0); Mean Corpuscular HGB CONC 35.5 g/dL (32.0-36.0); Mean Corpuscular Hemoglobin 32.2 pg (27.0-31.0); Mean Corpuscular Volume 90.6 fL (78.0-98.0); Mean Platelet Volume 8.1 fL (7.4-10.4); Platelet Count 192 thou/uL (130-400); RBC Distribution Width 12.2 % (11.5-14.5); Red Blood Cell (RBC) Count 4.12 mill/uL (4.70-6.10); White Blood Cell (WBC) Count 4.9 thou/uL (4.8-10.8)
[2019-06-01 08:41] LABS: Anion Gap 12 mmol/L (10-20); BUN (Urea Nitrogen) 7 mg/dL (8.4-25.7); Calc. Creatinine Clearance 160 mL/min (70-130); Calcium 8.6 mg/dL (7.8-10.44); Carbon Dioxide 24 mmol/L (22-29); Chloride 104 mmol/L (98-107); Estimated GFR-MDRD 87; Glucose 86 mg/dL (70-105); Lipase 46 U/L (8-78); Potassium 3.9 mmol/L (3.5-5.1); Sodium 136 mmol/L (136-145)
[2019-06-01] MEDS ORDERED: ISOVUE-370 76%-LOCM 1 ML ONE (12:02)
[2019-06-01] MEDS: Sodium Chloride 0.45% 1,000 ML IV SCH (12:20)
[2019-06-01] MEDS ORDERED: Acetaminophen/Codeine 30-300mg Tablet PO PRN ×2 (12:20)
--- NOTE | 2019-06-01 12:28 | PDOC.HOSPP ---
- Subjective Subjective: Says he is feeling better. Feels like he will be able to eat. - Objective Vital Signs & Weight: Vital Signs (12 hours) Temp Pulse Resp BP Pulse Ox 06/01/19 12:20 98.6 F 77 18 142/96 H 94 L 06/01/19 08:07 97.9 F 71 20 131/83 94 L 06/01/19 08:00 94 L Weight Weight 278 lb 7 oz I&O: 05/31/19 06/01/19 06/02/19 06:59 06:59 06:59 Intake Total 1999 Balance 1999 Result Diagrams: 06/01/19 07:15 06/01/19 07:15 ROS - Review of Systems All systems: All other ROS were reviewed and found negative. - Medication Medications: Active Medications Generic Name Dose Route Start Last Admin Trade Name Freq PRN Reason Stop Dose Admin Enoxaparin Sodium 40 mg 05/31/19 09:00 06/01/19 07:59 Lovenox SC 40 mg 0900 RONNIE Administration HCTZ/Losartan Potassium 1 tab 05/31/19 09:00 06/01/19 07:57 Hyzaar 100/25 PO 1 tab QAM RONNIE Administration Sodium Chloride 1,000 mls @ 75 mls/hr 05/31/19 08:45 06/01/19 12:20 1/2 Normal Saline IV 1,000 mls .[id number] RONNIE Administration Ondansetron HCl 4 mg 05/31/19 19:03 06/01/19 07:58 Zofran IVP 4 mg Q6H PRN Administration Nausea/Vomiting Venlafaxine HCl 25 mg 05/31/19 09:00 06/01/19 07:57 Effexor PO 25 mg DAILY RONNIE Administration - Exam NAD Neck: supple, symmetric, no JVD, no Thyromegaly, no lymphadenopathy, no carotid bruit Heart: RRR, no murmur, no gallops, no rubs, normal peripheral pulses Respiratory: CTAB, no wheezes, no rales, no ronchi, normal chest expansion, no tachypnea, normal percussion Gastrointestinal: soft, non-tender, non-distended, normal bowel sounds, no palpable masses, no hepatomegaly, no splenomegaly, no bruit Extremities: no cyanosis, no clubbing, no edema Musculoskeletal: normal tone, normal strength, no muscle wasting Psychiatric: normal affect Hosp A/P (1) Pancreatitis Code(s): K85.90 - ACUTE PANCREATITIS WITHOUT NECROSIS OR INFECTION, UNSP Status: Acute (2) Renal mass, left Code(s): N28.89 - OTHER SPECIFIED DISORDERS OF KIDNEY AND URETER Status: Acute (3) PTSD (post-traumatic stress disorder) Code(s): F43.10 - POST-TRAUMATIC STRESS DISORDER, UNSPECIFIED Status: Acute (4) HTN (hypertension) Code(s): I10 - ESSENTIAL (PRIMARY) HYPERTENSION Status: Acute - Plan Clear liquid diet. Resume home meds. PO T#[address] renal mass protocol. Has left renal mass on CT not consistent with cyst. Unchanged from 02/21.
[2019-06-01] MEDS ORDERED: FLUoxetine HCl 20 MG CAP PO SCH (12:30)
--- NOTE | 2019-06-01 13:42 | CT ---
CT of the abdomen with and without contrast INDICATION: Left renal lesion COMPARISON: CT of the abdomen and pelvis dated May 31, 2019 FINDINGS: Lung bases: There is a calcified granuloma in the left lower lobe Liver: Severe fatty liver Gallbladder: Surgically absent Intrahepatic and extra hepatic biliary ducts: Normal. Pancreas: Normal. Adrenal glands: Normal. Kidneys: The 1.8 cm exophytic lesion off the inferior pole of the left kidney does not enhance is con sistent with a proteinaceous cyst Spleen: Normal. Lymphadenopathy: No enlarged lymph nodes are seen. Vasculature: There are mild vascular calcifications involving the abdominal aorta Stomach and proximal small bowel: Normal. Large bowel: The visualized large bowel appears within normal limits. Free fluid or free air: None. Osseous structures: No acute fracture or subluxation demonstrated. There is scattered degenerative an d osteoarthritic change present. IMPRESSION: 1. The hyperdense exophytic lesion off the inferior pole left kidney is consistent with a proteinaceo us cyst. 2. Fatty liver
[2019-06-01 16:36] VITALS: BP 126/77; TEMP 98.4
[2019-06-01] MEDS ORDERED: Mirtazapine 15 MG Soltab PO SCH (21:00)
[2019-06-01] MEDS ORDERED: Atorvastatin Calcium 10 MG TAB PO SCH (21:00)
[2019-06-01] MEDS ORDERED: traZODone HCl 150 MG TAB PO SCH (21:00)
[2019-06-01] MEDS ORDERED: Venlafaxine HCl XR 75 MG CAP PO SCH (21:00)
[2019-06-01] MEDS ORDERED: OXcarbazepine 150 MG TAB PO SCH (21:00)
[2019-06-02] MEDS ORDERED: FLUoxetine HCl 20 MG CAP PO SCH (09:00)
--- NOTE | 2019-06-02 11:53 | DIS ---
DATE OF ADMISSION: 05/31/2019 DATE OF DISCHARGE: 06/01/2019 DISCHARGE DIAGNOSES: 1. Pancreatitis. 2. Lactic acidosis. 3. Proteinaceous cyst of the left kidney. 4. History of post-traumatic stress disorder. 5. History of hypertension. HISTORY OF PRESENT ILLNESS: This patient is a 59-year-old male, who states he has a history of pancreatitis and had a cholecystectomy and that was presumably the source of his original pancreatitis. The patient presented to the emergency department complaining of some abdominal pain. He had labs, which revealed a lipase of 117. He had a CT scan of the abdomen, which was negative, with the exception of showing an exophytic lesion on the left kidney, which had been present from a previous CT scan in February and appeared to be unchanged, but had density inconsistent with a simple cyst. HOSPITAL COURSE: The patient was admitted to the hospital for pancreatitis. He was started on IV fluids, IV pain medications, and kept n.p.o. The following morning, his lipase was down to 76. He was feeling better in general. His pain had resolved. He was advanced to clear liquids, and he had a CT abdomen renal mass protocol, that result was consistent with an exophytic proteinaceous cyst that was benign. The patient tolerated the clear liquids well. His pain was resolved, and he was felt to be stable for discharge to home. DISPOSITION: The patient will be discharged. DISCHARGE MEDICATIONS: He will continue with his usual home medications. I will give him 10 Tylenol No. 3 as his EHR indicates that he has had Eliot and Tylenol No. 3 filled by other physicians as an outpatient, so I am going to keep the number limited. DIET: The patient is to have a regular diet starting tomorrow assuming he continues to feel well. ACTIVITY: His activity level is as tolerated. FOLLOWUP: He should follow up with his PCP, and he can return to the hospital should he have any problems prior to that time. Job ID: [id number]
== END 2019-06-01 17:53 | disposition home or self-care (01) ==
LOC: ERS 00:30 → T4-A 04:18
PROVIDERS: ADMIT Internal Medicine; ATTEND Internal Medicine
DX: K85.90 Acute pancreatitis without necrosis or infection, unspecified (principal); E87.2 Acidosis; N28.1 Cyst of kidney, acquired; I10 Essential (primary) hypertension; E78.5 Hyperlipidemia, unspecified; F43.10 Post-traumatic stress disorder, unspecified; F31.9 Bipolar disorder, unspecified; E66.9 Obesity, unspecified; Z68.42 Body mass index [BMI] 45.0-49.9, adult; Z79.899 Other long term (current) drug therapy; Z88.5 Allergy status to narcotic agent; Z88.8 Allergy status to other drugs, medicaments and biological substances
CPT/HCPCS: 74170; 74177; 80048; 80053; 81003; 83605; 83690 ×2; 84484; 85025 ×2; 93005; 96361 ×3; 96372 ×2; 96374; 96375; 96376 ×2; 99285; G0378 ×3; 36415; C9113; J1170; J1650; J2270; J2405; J3010; Q0162; Q9966

== ENCOUNTER 2019-12-24 00:02 | Emergency (ER) | payer MEDICARE ==
[2019-12-24] MEDS ORDERED: Lorazepam 1 MG TAB ONE (02:55)
== END 2019-12-24 03:19 | disposition home or self-care (01) ==
LOC: ERS 00:02
DX: F41.9 Anxiety disorder, unspecified (principal); J06.9 Acute upper respiratory infection, unspecified; E78.5 Hyperlipidemia, unspecified; I10 Essential (primary) hypertension; F31.9 Bipolar disorder, unspecified; F43.10 Post-traumatic stress disorder, unspecified; Z79.899 Other long term (current) drug therapy
CPT/HCPCS: 93005

== ENCOUNTER 2019-12-24 17:44 | Emergency (ER) | payer MEDICARE ==
[2019-12-24] MEDS ORDERED: Diazepam 5 MG TAB ONE (18:58)
== END 2019-12-24 19:25 | disposition home or self-care (01) ==
LOC: ERS 17:44
DX: F41.9 Anxiety disorder, unspecified (principal); E78.5 Hyperlipidemia, unspecified; I10 Essential (primary) hypertension; F31.9 Bipolar disorder, unspecified; F43.10 Post-traumatic stress disorder, unspecified
CPT/HCPCS: 93005; 99283

== ENCOUNTER 2020-01-12 00:09 | Emergency (ER) | payer MEDICARE ==
[2020-01-12 00:43] LABS: #Eosinphils 0.2 thou/uL (0.0-0.7); #Lymphocytes 1.5 thou/uL (1.20-3.40); #Monocytes 0.7 thou/uL (0.11-0.59); #Neutrophils 3.5 thou/uL (1.40-6.50); %Basophils 0.4 % (0.0-1.0); %Eosinophils 3.4 % (0.0-10.0); %Lymphocytes 25.6 % (21.0-51.0); %Neutrophils 58.6 % (42.0-75.0); Hemoglobin 14.3 g/dL (14.0-18.0); Mean Corpuscular HGB CONC 35.5 g/dL (32.0-36.0); Mean Corpuscular Hemoglobin 32.7 pg (27.0-31.0); Mean Corpuscular Volume 92.1 fL (78.0-98.0); Mean Platelet Volume 8.8 fL (7.4-10.4); Platelet Count 193 thou/uL (130-400); RBC Distribution Width 12.5 % (11.5-14.5); Red Blood Cell (RBC) Count 4.37 mill/uL (4.70-6.10)
[2020-01-12 00:56] LABS: Bacteria/HPF None Seen HPF (None Seen); Bilirubin Negative (Negative); Blood, Urine Negative (Negative); Clarity Clear (Clear); Glucose, Urine (Dipstick) Normal (Negative); Leukocyte 75 Leu/uL (Negative); Nitrite Negative (Negative); Protein, Urine (Dipstick) Negative (Neg-Trace); RBC/HPF 0-3 HPF (0-3); Squamous Epithelial None Seen HPF (0-3); Urobilinogen Normal mg/dL (Less than 2); WBC/HPF 0-3 HPF (0-3)
[2020-01-12 01:05] LABS: ALT (SGPT) 23 U/L (8-55); AST (SGOT) 21 U/L (5-34); Albumin 4.2 g/dL (3.5-5.0); Alkaline Phosphatase 64 U/L (40-110); Anion Gap 14 mmol/L (10-20); BUN (Urea Nitrogen) 14 mg/dL (8.4-25.7); Bilirubin, Total 0.3 mg/dL (0.2-1.2); Calc. Creatinine Clearance 0 mL/min (70-130); Calcium 9.1 mg/dL (7.8-10.44); Carbon Dioxide 26 mmol/L (22-29); Chloride 103 mmol/L (98-107); Estimated GFR-MDRD 78; Globulin 2.8 g/dL (2.4-3.5); Glucose 108 mg/dL (70-105); Lipase 186 U/L (8-78); Potassium 4.7 mmol/L (3.5-5.1); Sodium 138 mmol/L (136-145)
[2020-01-12] MEDS ORDERED: Morphine 4 MG/ML VIAL ONE ×3 (02:44→02:49)
[2020-01-12] MEDS ORDERED: Ondansetron PF 4 MG/2 ML Vial ONE (02:45)
== END 2020-01-12 03:58 | disposition short-term general hospital (02) ==
LOC: ERS 00:09
DX: K85.90 Acute pancreatitis without necrosis or infection, unspecified (principal); E78.5 Hyperlipidemia, unspecified; I10 Essential (primary) hypertension; F41.9 Anxiety disorder, unspecified; F31.9 Bipolar disorder, unspecified; F43.10 Post-traumatic stress disorder, unspecified; Z79.899 Other long term (current) drug therapy
CPT/HCPCS: 36415; 80053; 81003; 81015; 83690; 85025; 96361; 96374; 96375; J2270; J2405

== ENCOUNTER 2021-11-28 11:22 | Inpatient (IN) | payer MEDICAID, MEDICARE ==
[2021-11-28 12:04] LABS: #Eosinphils 0.1 thou/uL (0.0-0.7); #Lymphocytes 1.5 thou/uL (1.20-3.40); #Monocytes 0.7 thou/uL (0.11-0.59); #Neutrophils 7.6 thou/uL (1.40-6.50); %Basophils 0.4 % (0.0-1.0); %Eosinophils 1.4 % (0.0-10.0); %Lymphocytes 14.8 % (21.0-51.0); %Monocytes 6.9 % (0.0-10.0); %Neutrophils 76.5 % (42.0-75.0); Hemoglobin 16.1 g/dL (14.0-18.0); Mean Corpuscular HGB CONC 34.6 g/dL (32.0-36.0); Mean Corpuscular Hemoglobin 31.8 pg (27.0-31.0); Mean Corpuscular Volume 91.8 fL (78.0-98.0); Platelet Count 253 thou/uL (130-400); RBC Distribution Width 12.8 % (11.5-14.5); Red Blood Cell (RBC) Count 5.06 mill/uL (4.70-6.10); White Blood Cell (WBC) Count 9.9 thou/uL (4.8-10.8)
[2021-11-28 12:15] LABS: Prothrombin Time 13.3 sec (12.0-14.7)
[2021-11-28 12:16] LABS: PTT 28.8 sec (22.9-36.1)
[2021-11-28] MEDS ORDERED: Atropine Sulfate 1 mg/10 ml Syringe ONE (12:29)
[2021-11-28 12:38] LABS: ALT (SGPT) 14 U/L (8-55); AST (SGOT) 17 U/L (5-34); Albumin 4.5 g/dL (3.5-5.0); Alkaline Phosphatase 61 U/L (40-110); Anion Gap 9 mmol/L (10-20); BUN (Urea Nitrogen) 19 mg/dL (8.4-25.7); CK (CPK) 240 U/L (30-200); Calc. Creatinine Clearance 0 mL/min (70-130); Calcium 9.4 mg/dL (7.8-10.44); Carbon Dioxide 29 mmol/L (22-29); Chloride 101 mmol/L (98-107); Globulin 2.6 g/dL (2.4-3.5); Glucose 99 mg/dL (70-105); Magnesium 2.1 mg/dL (1.6-2.6); Potassium 3.4 mmol/L (3.5-5.1); Protein, Total 7.1 g/dL (6.0-8.3); Sodium 136 mmol/L (136-145)
[2021-11-28] MEDS ORDERED: DOBUTamine 500 mg/250 ml 250 ML ONE (12:44)
[2021-11-28] MEDS ORDERED: Acetaminophen 325 MG TAB PO PRN (13:48)
[2021-11-28] MEDS ORDERED: Ondansetron ODT 4 MG TAB PO PRN (13:48)
[2021-11-28] MEDS ORDERED: Acetaminophen 500 MG TAB ONE (13:50)
[2021-11-28] MEDS ORDERED: Nicotine 14 MG PATCH TD SCH (14:00)
[2021-11-28] MEDS ORDERED: DOBUTamine 500 mg/250 ml 250 ML IVPB SCH (14:15)
[2021-11-28 15:32] LABS: Troponin I Less than 0.010 ng/mL (< 0.028)
[2021-11-28] MEDS: Sodium Chloride 0.9% 1,000 ML IV SCH (15:41)
[2021-11-28 15:42] LABS: SARS-CoV-2 NAA Rapid Test Not Detected (NotDetected)
[2021-11-28] MEDS ORDERED: Aspirin 81 mg Enteric Coated Tablet PO SCH (16:00)
[2021-11-28 16:13] LABS: Amphetamine Not Detected (NotDetected); Benzodiazepine Screen Not Detected (NotDetected); Cocaine Metabolite Screen Not Detected (NotDetected); Methadone Not Detected (NotDetected); Methamphetamine Not Detected (NotDetected); Opiate Screen Not Detected (NotDetected); Phencyclidine (PCP) Not Detected (NotDetected); THC/Cannabinoid Screen Detected (NotDetected); Tricyclic Screen Not Detected (NotDetected)
[2021-11-28 16:25] LABS: Barbiturates Screen Not Detected (NotDetected); Oxycodone Screen Not Detected (NotDetected)
[2021-11-28] MEDS ORDERED: Electrolyte Replacement Protocol 1 EACH FS SCH (16:30)
[2021-11-28] MEDS ORDERED: Potassium Chloride 20 MEQ TAB PO SCH (19:30)
[2021-11-28] MEDS ORDERED: Famotidine 20 MG TAB PO SCH (21:00)
[2021-11-28] MEDS ORDERED: Atorvastatin Calcium 40 MG TAB PO SCH (21:00)
[2021-11-29] MEDS: Sodium Chloride 0.9% 1,000 ML IV SCH (00:05)
[2021-11-29 03:48] LABS: #Eosinphils 0.1 thou/uL (0.0-0.7); #Lymphocytes 1.4 thou/uL (1.20-3.40); #Monocytes 0.6 thou/uL (0.11-0.59); #Neutrophils 4.5 thou/uL (1.40-6.50); %Basophils 0.4 % (0.0-1.0); %Eosinophils 1.6 % (0.0-10.0); %Lymphocytes 21.6 % (21.0-51.0); %Monocytes 9.5 % (0.0-10.0); Hemoglobin 14.5 g/dL (14.0-18.0); Mean Corpuscular HGB CONC 34.2 g/dL (32.0-36.0); Mean Corpuscular Volume 93.4 fL (78.0-98.0); Mean Platelet Volume 8.2 fL (7.4-10.4); Platelet Count 232 thou/uL (130-400); RBC Distribution Width 12.9 % (11.5-14.5); Red Blood Cell (RBC) Count 4.53 mill/uL (4.70-6.10); White Blood Cell (WBC) Count 6.6 thou/uL (4.8-10.8)
[2021-11-29 04:09] LABS: Anion Gap 10 mmol/L (10-20); BUN (Urea Nitrogen) 15 mg/dL (8.4-25.7); Calc. Creatinine Clearance 0 mL/min (70-130); Calcium 8.7 mg/dL (7.8-10.44); Carbon Dioxide 26 mmol/L (22-29); Chloride 106 mmol/L (98-107); Glucose 112 mg/dL (70-105); Potassium 3.7 mmol/L (3.5-5.1); Sodium 138 mmol/L (136-145)
[2021-11-29 04:15] LABS: Troponin I 0.013 ng/mL (< 0.028)
[2021-11-29 05:01] VITALS: TEMP 98.1
[2021-11-29] MEDS ORDERED: Potassium Chloride 20 MEQ TAB PO SCH (08:00)
[2021-11-29] MEDS ORDERED: Enoxaparin Sodium 30 MG/0.3 ML SYRINGE SC SCH (09:00)
[2021-11-29] MEDS ORDERED: Aspirin 81 mg Enteric Coated Tablet PO SCH (09:00)
== END 2021-11-29 07:29 | disposition left against medical advice (07) | DRG 310 ==
LOC: ERS 11:22 → CCU 13:21
PROVIDERS: ADMIT Internal Medicine; ATTEND Internal Medicine
DX: I45.10 Unspecified right bundle-branch block (principal); W19.XXXA Unspecified fall, initial encounter; E78.5 Hyperlipidemia, unspecified; I10 Essential (primary) hypertension; Z96.612 Presence of left artificial shoulder joint; F41.9 Anxiety disorder, unspecified; F31.9 Bipolar disorder, unspecified; F43.10 Post-traumatic stress disorder, unspecified; F17.210 Nicotine dependence, cigarettes, uncomplicated; R00.1 Bradycardia, unspecified; E87.6 Hypokalemia; F12.90 Cannabis use, unspecified, uncomplicated; I95.9 Hypotension, unspecified; Z20.822 Contact with and (suspected) exposure to COVID-19; Z88.8 Allergy status to other drugs, medicaments and biological substances; Y92.9 Unspecified place or not applicable; Z90.49 Acquired absence of other specified parts of digestive tract; Z79.899 Other long term (current) drug therapy
CPT/HCPCS: 36415; 70450; 71045; 80048; 80053; 80306; 82550; 83735; 83880; 84443; 84484; 85025; 85610; 85730; 93005; 93010; 93306; 93880; 94760; J0461; J1250; J7050; U0002